=== PATIENT | male | born 1985 | race Caucasian/White ===

== ENCOUNTER 2023-07-15 08:04 | Emergency (ER) | payer OTHER ==
[~2023-07-15] VITALS: Ht 188 cm; Wt 88.5 kg
[~2023-07-15 08:04] MED LIST: Amoxicillin500 M1 PO; CEPH500 PO; ESCI10; ESCI10 PO; IBUP200; IBUP800 PO; Lexapro 10 mg T10 MG PO; PERIDEX15 ML MM; PRED20 PO; SULTRIDS PO; TRAZ50 PO; Xanax0.5 MG PO
[2023-07-15 09:20] LABS: Calcium, Ionized (POC) 1.19 mmol/L (1.10-1.46); Chloride (POC) 102 mmol/L (98-108); Glucose (ISTAT POC) 140 mg/dL (70-99); Potassium (POC) 4.2 mmol/L (3.5-5.5); Sodium (POC) 139 mmol/L (135-148); Total CO2 (POC) 27 mmol/L (21-32)
[2023-07-15 09:39] VITALS: BP 138/77
== END 2023-07-15 09:40 | disposition home or self-care (01) ==
LOC: ER 08:04
PROVIDERS: Physician Assistant
DX: R53.1 Weakness (principal); Z87.891 Personal history of nicotine dependence
CPT/HCPCS: 80047; 85014; 93005; 93010; 99284-25

== ENCOUNTER 2024-01-18 09:00 | Emergency (ER) | payer OTHER ==
[~2024-01-18] VITALS: Ht 188 cm; Wt 95.2 kg
[2024-01-18 10:06] LABS: Source, Urine Clean Catch
[2024-01-18 10:11] LABS: Appearance, Urine Clear (Clear); Bilirubin, Urine Neg (Neg); Blood, Urine Neg (Neg); Color, Urine Yellow (P-Yellow); Glucose Qualitative, Urine Neg (Neg); Ketones, Urine Neg (Neg); Leukocyte Esterase, Urine Neg (Neg); Nitrite, Urine Neg (Neg); Protein, Urine Neg (Neg); Urobilinogen, Urine NORM (Normal)
[2024-01-18 11:57] VITALS: BP 156/84
== END 2024-01-18 12:00 | disposition home or self-care (01) ==
LOC: ER 09:00
PROVIDERS: Emergency Medicine
DX: N43.3 Hydrocele, unspecified (principal); R10.30 Lower abdominal pain, unspecified; Z87.891 Personal history of nicotine dependence
CPT/HCPCS: 76870; 81003; 99284-25